=== PATIENT | female | born 1955 | race Caucasian/White ===

== ENCOUNTER 2017-12-08 07:42 | Day surgery (SDC) | payer OTHER ==
[2017-12-08] MEDS ORDERED: LR 1,000 ML IV ONE (07:53)
[2017-12-08] MEDS ORDERED: MIDAZOLAM 2 MG/2 ML VIAL IVP ONE (09:00)
--- NOTE | 2017-12-08 09:01 | PDANEPAE ---
ANE History of Present Illness port ANE Past Medical History - Cardiovascular History Hx Hypertension: No Hx Arrhythmias: No Hx Chest Pain: No Hx Coronary Artery / Peripheral Vascular Disease: No Hx CHF / Valvular Disease: No Hx Palpitations: No - Pulmonary History Hx COPD: No Hx Asthma/Reactive Airway Disease: No Hx Recent Upper Respiratory Infection: No Hx Oxygen in Use at Home: No Hx Sleep Apnea: No Sleep Apnea Screening Result - Last Documented: Negative - Neurologic History Hx Cerebrovascular Accident: No Hx Seizures: No Hx Dementia: No Neurologic History Comment: MIGRAINES IN PAST - Endocrine History Hx Diabetes: No Hypothyroid: No Hyperthyroid: No - Renal History Hx Renal Disorders: No - Liver History Hx Hepatic Disorders: No - Neurological & Psychiatric Hx Hx Neurological and Psychiatric Disorders: No - Cancer History Hx Cancer: Yes Cancer History Comment: COLON CA - Congenital Disorder History Hx Congenital Disorders: No - GI History Hx Gastrointestinal Disorders: No Gastrointestinal History Comment: COLON CA - Other Health History Other Health History: NEG - Chronic Pain History Chronic Pain: No - Surgical History Prior Surgeries: COLECTOMY ANE Review of Systems Review of Systems: - Exercise capacity Exercise capacity: >=4 METS METS (RN): 5 METS ANE Patient History - Allergies Allergies/Adverse Reactions: erythromycin base [Erythromycin Base] Allergy (Severe, Verified 02/27/12 21:15) Rash - Home Medications Home medications: home medication list seen and reviewed Home Medications: NK [No Known Home Meds] 10/28/17 [Last Taken Unknown] - NPO status NPO Status: no food or drink >8 hours NPO Since - Liquids (Date): 12/08/17 NPO Since - Liquids (Time): 05:00 NPO Since - Solids (Date): 12/07/17 NPO Since - Solids (Time): 19:30 - Anes Hx Anes Hx: no prior problems - Smoking Hx Smoking Status: Never smoked - Family Anes Hx Family Hx Anesthesia Complications: NEG ANE Labs/Vital Signs - Vital Signs Blood Pressure: 128/71 Heart Rate: 62 Respiratory Rate: 16 O2 Sat (%): 96 Height: 165.1 cm Weight: 61.235 kg ANE Physical Exam - Airway Mallampati Score: Class 2 Mouth exam: normal dental/mouth exam - Pulmonary Pulmonary: no respiratory distress - Cardiovascular Cardiovascular: regular rate and rhythym - ASA Status ASA Status: II ANE Anesthesia Plan Anesthesia Plan: GA w LMA
--- NOTE | 2017-12-08 09:04 | PDHPUP ---
History & Physical Update H&P update statement: This history and physical update is based on an assessment of the patient which was completed after admission or registration (within 24 hours), but prior to the surgery/procedure. no changes in exam! H&P update: no change in patient's condition since H&P completed H&P changes: none
[2017-12-08] MEDS ORDERED: LIDOCAINE 1% 300 MG/30 ML SDV ONE (09:09)
[2017-12-08] MEDS ORDERED: NA BICARBONATE 50 MEQ/50 ML VIAL ONE (09:09)
[2017-12-08] MEDS ORDERED: fentaNYL 100 MCG/2 ML INJ ONE (09:09)
[2017-12-08] MEDS ORDERED: DEXAMETHASONE 4 MG/ML VIAL ONE (09:10)
[2017-12-08] MEDS ORDERED: BACITRACIN 50,000 UNITS/10 ML SYR IRR ONE (09:10)
[2017-12-08] MEDS ORDERED: LIDOCAINE 2% 2 ML INJ ONE ×2 (09:10)
[2017-12-08] MEDS ORDERED: PROPOFOL 200 MG/20 ML VIAL ONE (09:10)
[2017-12-08] MEDS ORDERED: ONDANSETRON 4 MG/2 ML VIAL ONE (09:10)
[2017-12-08] MEDS ORDERED: KETOROLAC 30 MG/1 ML SDV ONE (09:10)
[2017-12-08] MEDS ORDERED: LIDO/EPI 1% **for epidural** 30 ML SDV ONE (09:28)
[2017-12-08] MEDS ORDERED: ePHEDrine SULFATE 25 MG/5 ML SYR ONE (09:49)
[2017-12-08] MEDS ORDERED: LR 500 ML IV PRN (10:08)
[2017-12-08] MEDS ORDERED: fentaNYL 100 MCG/2 ML INJ IVP PRN (10:08)
[2017-12-08] MEDS ORDERED: HYDROCODONE/APAP 5/325 TAB PO PRN (10:08)
[2017-12-08] MEDS ORDERED: ONDANSETRON 4 MG/2 ML VIAL IVP PRN (10:08)
[2017-12-08] MEDS ORDERED: NALOXONE HCL 0.4 MG/ML INJ IVP PRN (10:08)
--- NOTE | 2017-12-08 10:08 | POSTANESTH ---
Post Anesthetic Evaluation Cardiovascular Status: Normal, Stable Respiratory Status: Normal, Stable Level of Consciousness/Mental Status: Can Participate in Eval Pain Control: Adequate, Prn Tx Ordered Nausea/Vomiting Control: Adequate, Prn Tx Ordered Complications Possibly Related to Anesthesia: None Noted
--- NOTE | 2017-12-08 10:14 | POSTOPPROG ---
Post Op Note Date of Operation: 12/08/17 Surgeon: Brenton Rubin Pre-op Diagnosis: colon cancer Post-op Diagnosis: same Procedure: left subclavian port placemnnt Inf/Abcess present in the surg proc area at time of surgery?: No EBL: Minimal
--- NOTE | 2017-12-08 10:34 | GOP ---
DATE OF OPERATION: SURGEON: Brenton Rubin MD PREOPERATIVE DIAGNOSIS: Colon cancer. POSTOPERATIVE DIAGNOSIS: Colon cancer. PROCEDURE PERFORMED: Left subclavian port placement. FINDINGS: INDICATIONS: 62-year-old female with known colon cancer with positive nodes needing a port for chemo therapy. DESCRIPTION OF PROCEDURE: Patient positioned supine. The left and right chest scrubbed with ChloraP rep, draped in usual sterile fashion. 1% lidocaine was used below the midportion of the left clavicl e with an 18-gauge thin wall needle used to locate the subclavian vein without difficulty. Guidewire passed in the superior vena cava. Its position confirmed with fluoroscopy. A port pocket was then created over a flat part of the chest somewhat medial to the puncture site. Port was placed and sutu red to the prepectoral plane. The catheter tunneled to the subclavian puncture site, cut to appropri ate length and fed through the split sheath dilator into the extra pericardial superior vena cava. I ts position was again confirmed with fluoroscopy. The port was again flushed with heparinized saline . All incisions closed with 4-0 Vicryl and Dermabond. The patient tolerated the procedure well. /[id number]/MODL
[2017-12-08 12:13] VITALS: BP 110/66
== END 2017-12-08 12:11 | disposition home or self-care (01) ==
LOC: FSGY 07:42
PROVIDERS: ATTEND Surgery
PROC: 02HV33Z Insertion of Infusion Device into Superior Vena Cava, Percutaneous Approach (ICD-10-PCS; principal; 2017-12-08 09:00)
DX: C18.9 Malignant neoplasm of colon, unspecified (principal)
CPT/HCPCS: C1788; J0690; J1100; J1642; J1885; J2250; J2405; J2704; J3010